=== PATIENT | male | born 1980 | race Caucasian/White ===

== ENCOUNTER 2022-12-17 16:01 | Emergency (ER) | payer OTHER ==
[~2022-12-17] VITALS: Ht 185.4 cm; Wt 68.0 kg
[2022-12-17 16:06] VITALS: BP 111/87
== END 2022-12-17 18:19 | disposition home or self-care (01) ==
LOC: ER 16:01
DX: S51.812A Laceration without foreign body of left forearm, initial encounter (principal); V59.9XXA Occupant (driver) (passenger) of pick-up truck or van injured in unspecified traffic accident, initial encounter
CPT/HCPCS: 12005; 73110; 73562-LT; 99284-25; A9270